=== PATIENT | female | born 1980 | race Caucasian/White ===

== ENCOUNTER → 2018-03-13 | Outpatient (CLI) | payer OTHER ==
[2014-06-10 18:25] VITALS: BP 111/67
[~2018-03-13] MED LIST: PRENATAL VITAMI1 TAB PO
== END ==
LOC: LAB 13:29
DX: R30.0 Dysuria (principal); N39.0 Urinary tract infection, site not specified

== ENCOUNTER → 2020-06-24 | Outpatient (CLI) | payer OTHER ==
[2014-06-10 18:25] VITALS: BP 111/67
== END ==
LOC: LAB 09:20
DX: Z20.822 Contact with and (suspected) exposure to COVID-19 (principal)

== ENCOUNTER → 2023-11-07 | Outpatient (CLI) | payer OTHER | LOC: MAMMO 13:56 | DX: Z12.31 Encounter for screening mammogram for malignant neoplasm of breast (principal) ==